=== PATIENT | male | born 1990 | race Caucasian/White ===

== ENCOUNTER → 2018-04-27 14:18 | Outpatient (CLI) | payer SELFPAY | PROVIDERS: Visit Provider Nurse Practitioner Family | DX: Z02.4 Encounter for examination for driving license (principal) ==

== ENCOUNTER 2019-07-14 14:22 | Emergency (ER) | payer BC, MEDICAID, SELFPAY ==
[2019-07-14 14:29] VITALS: BP 140/90; PULSE 106; RESP 18; TEMP 36.8; O2SAT 97; BMI 24.3
[2019-07-14 14:37] VITALS: PULSE 88; RESP 18; O2SAT 100; BMI 24.0
--- NOTE | 2019-07-14 14:42 | HMH.EDUTC ---
[facility] [place] Disposition Clinical Impression: Abscess Disposition: Home, Self-Care Condition on Discharge: Good Instructions: DI for Skin Abscess, DI for Incision and Drainage of a Skin Abscess, Incision and Drainage of a Skin Abscess, Trimethoprim/Sulfamethoxazole (Alternative Therapy) Additional Instructions: Keep area clean and dry *Follow up with ENT tomorrow as advised in the [facility] with Dr Herrera at 1245 Take medication as prescribed Return if needed Straight to ER if any life threatening symptoms Prescriptions: Sulfamethoxazole/Trimethoprim [Bactrim DS tablet] 1 each PO BID 10 Days #20 tab Transmission Status: Pending to [facility]a #[id number] Referrals: Provider,MD Cherrie [Primary Care Provider] - As needed Modesto Herrera MD [Staff Physician] - 07/15/19 12:45 pm Forms: Work/School Release Time of Disposition: 15:11 Medical Decision Making - Manpreet Inquiry Pt receiving controlled substance: No Manpreet was queried for this patient: No Vital Signs: 07/14/19 14:29 07/14/19 14:37 Temperature 98.3 F Temperature Source Oral Pulse Rate [Radial] 106 H 88 Respiratory Rate 18 18 Blood Pressure [Right Arm] 140/90 Blood Pressure Mean [Right Arm] 106 Blood Pressure Source [Right Arm] Automatic Cuff Blood Pressure Position [Right Arm] Sitting 02 Sat by Pulse Oximetry 97 100 Oxygen Delivery Method Room Air [facility] [place] HPI - General Stated complaint: growth behind left ear lobe Time Seen by Provider: 07/14/19 14:42 Mode of Arrival: Ambulatory Limitations: No Limitations Description of Symptoms (Recalled from Triage Doc. by RN): Growth to the back of to left ear x3 days. HEENT Symptoms (Recalled from RN notes): No Resp Symptoms (Recalled from RN notes): No Skin Symptoms (Recalled from RN notes): Yes MS Symptoms (Recalled from RN notes): No Functional Status (Recalled from RN notes): na - History of Present Illness Provider Complaint: Patient states that he noticed a bump like area behind his left ear about 3-4 days ago and tried to get it to come to a head State that now it large and pushing against his ear lobe States that he took some left over amoxicillin but it hasnt helped States that he has it sore from mashing on it and it hurts when touched - Related Data Previous Rx's Medication Instructions Recorded rrevkwwsedanmnu-hopalhulnbpwenp-XO 10 ml PO Q4-6H PRN #240 ml 03/23/18 2 mg-30 mg-10 mg/5 mL oral syrup Sulfamethoxazole/Trimethoprim 1 each PO BID 10 Days #20 tab 07/14/19 [Bactrim DS tablet] Allergies Allergy/AdvReac Type Severity Reaction Status Date / Time codeine Allergy Mild Verified 03/23/18 18:26 - Worker's Comp Is this a Worker's Comp case?: No [facility] History - Hepatitis A Screen Drug use history?: No High risk sexual behaviors?: No History of sexually transmitted infection?: No Currently employed?: No Childcare worker?: No Do you have indoor plumbing?: Yes Do you have electricity?: Yes Attestation statement:: This patient has been screened for Hepatitis A risk factors. I have reviewed the patient's past medical history: Yes Laterality Cases: Left: Other - Social History Smoking Status: Current every day smoker Tobacco Type: cigarettes # Packs/Day (cigarettes): 1 Alcohol Intake: current Alcohol Intake Frequency:: 0-2 drinks per day Occupational Status: employed Housing: house Household Members: family Family Hx:: Cancer, Hypertension ROS Obtained: Yes All systems reviewed & no additional complaints, Yes Systems reviewed as appropriate & no additional complaints Physical Exam - General General appearance: alert, in no apparent distress - Expanded ENT Exam External ear exam: Present: other (round soft raised area noted behind left earlobe area soft tender to touch) - Respiratory Respiratory exam: Present: normal lung sounds bilaterally. Absent: respiratory distress - Cardiovascular Cardiovascular exam: Present: regular rate, normal r
[2019-07-14 15:22] VITALS: BP 145/87; PULSE 80; RESP 20; TEMP 36.8; O2SAT 98
== END 2019-07-14 15:23 | disposition home or self-care (01) ==
PROVIDERS: Emergency Provider Nurse Practitioner
DX: H60.02 Abscess of left external ear (principal)
CPT/HCPCS: 69000; 10060; 87070; 87077; 87186; 87205; 99202; 99203

== ENCOUNTER → 2019-07-16 10:04 | Outpatient (CLI) | payer MEDICAID, SELFPAY ==
[2019-07-16 10:26] LABS: Basophils # 0.2 K/mm3 (0-0.2); Basophils % 2.2 % (0.1-2.0); Eosinophils # 0.2 K/mm3 (0.0-0.4); Eosinophils % 2.5 % (0.1-12.0); Hematocrit 50.7 % (42.0-52.0); Hemoglobin 16.9 g/dL (14.1-18.0); Lymphocytes # 1.8 K/mm3 (0.7-4.5); Lymphocytes % 25.5 % (10-50); Mean Corpuscular HGB Conc 33.3 g/dL (31.8-35.4); Mean Corpuscular Hemoglobin 31.7 pg (27.0-31.2); Mean Corpuscular Volume 95.1 fl (80-94); Mean Platelet Volume 7.8 fl (7.4-10.4); Monocytes # 0.8 K/mm3 (0.1-1.0); Monocytes % 11.1 % (1.7-9.3); Neutrophils # 4.2 K/mm3 (1.8-7.8); Neutrophils % 58.7 % (37.0-80.0); Platelet Count 269 K/mm3 (142-424); Red Blood Count 5.34 M/mm3 (4.60-6.20); Red Cell Distribution Width 13.1 % (11.5-17.5); White Blood Count 7.2 K/mm3 (4.8-10.8)
[2019-07-16 11:06] LABS: Chloride 104 mmol/L (98-107); Sodium 134 mmol/L (136-145)
[2019-07-16 11:07] LABS: Potassium 4.4 mmoL/L (3.5-5.1)
[2019-07-16 11:09] LABS: Blood Urea Nitrogen 8 mg/dl (9-20); Estimated Glomerular Filt Rate 100 ml/min (>60); GFR (African American) 122 ML/MIN (>60)
[2019-07-16 11:10] LABS: Anion Gap 10.4 mEq/L (5-15); Calcium 8.9 mg/dl (8.4-10.2); Carbon Dioxide 24 mmol/L (22.0-30.0); Glucose 122 mg/dl (74-100)
[2019-07-17 16:08] LABS: Covid-19 Nasal PCR Sendout Lex NOT DETECTED
== END ==
PROVIDERS: Visit Provider Otolaryngology
DX: Z01.818 Encounter for other preprocedural examination (principal); Q18.1 Preauricular sinus and cyst
CPT/HCPCS: 36415; 80048; 85025; U0004

== ENCOUNTER 2019-07-18 07:58 | Day surgery (SDC) | payer MEDICAID, SELFPAY ==
[2019-07-17 10:42] VITALS: BMI 24.3
[2019-07-18] VITALS (10 sets, daily range): BP systolic 109–146; BP diastolic 64–89; PULSE 77–96; RESP 16–20; TEMP 36.4–37; O2SAT 94–98
--- NOTE | 2019-07-18 08:23 | ECG_ITS ---
APPROVED REPORT Exam: Resting ECG HR:86 bpm ECG Measurements Heart Rate 86 AXES IL 150 P 58 QRSd 88 QRS 45 QT 354 T 52 QTc 423 <Conclusion> Normal sinus rhythm Nonspecific T wave abnormality Abnormal ECG Electronically signed by : Damion Lan, 07/18/2019 21:38:34
--- NOTE | 2019-07-18 08:59 | P.PN_ITS ---
[facility] Anesthesia Checklist - Patient Identification Patient Identification: Arm Band, Verbal (Name & ) - Structural Data Admitted From: Home Planned Operative Procedure/s: [email or web address] Consent for Planned Operative Procedure(s) Verified: Yes Verified Documents: History and Physical - NPO Status Verified Time NPO: 00:00 - Chart Verification Results Verified: CBC, BMP - Additional verifications Patient : No Anesthesia Reactions: No Hx Blood Transfusions: No Blood Transfusion Reaction: No Cephalosporin Allergy: No Previous Colonoscopy: No - Cardiovascular Assessment Heart Sounds: S1 & S2 Pulse Strength: Baseline Pulse Rhythm: Regular Peripheral Edema: No - Airway Assessment C-Spine Mobility Assessed: Yes TMJ Mobility Assessed: Yes Dentition: Good Dentition - Neurological Assessment Level of Consciousness: Awake, Alert, Appropriate Hx Seizures: No Numbness or tingling in extremities: No - Anesthesia Plan Anesthesia Risk discussed: Yes Anesthesia Plan: Verified ASA Class: II Anesthesia Type: MAC [facility] History I have reviewed the patient's past medical history: Yes Medical History: Denies:: Cancer, Diabetes Mellitus Type 1, Diabetes Mellitus Type 2, Internal Pacemaker, MRSA, Seizures *Have you ever received a pneumonia vaccine?: No *Have you received a flu vaccine this season?: No Other Medical History: Denies: Blood Transfusion Reaction Anesthesia experience/problems:: none Laterality Cases: Left: Other Other Surgeries: Yes: Other. No: Pacemaker Amputation: No Fractures: Yes - *Social History Educational Level: Attended High School Smoking Status: Current every day smoker Tobacco Type: cigarettes # Packs/Day (cigarettes): 1 Alcohol Intake: current Alcohol Intake Frequency:: holidays/special occasions only Substance Use Type: other *Occupational Status:: unemployed Housing: house Household Members: none *Travel in the last 8 weeks: None Family Hx:: No significant family history
--- NOTE | 2019-07-18 10:44 | HMH.ANESI ---
[facility] Anesthesia Record Part I Intake, IV Amount: 700 Estimated blood loss (mL): 5 Urine output (mL): 0 Blood Pressure: 109/64 SaO2: 94 Pulse Rate: 82 Respiratory Rate: 16 Temperature: 97.6 F Patient is:: Drowsy, Stable Stable to PACU at:: 10:40
--- NOTE | 2019-07-18 10:55 | PC.NURSE ---
1042-oral airway removed at this time, pt awake, drowsy and talking to staff, vss
--- NOTE | 2019-07-18 11:11 | PC.NURSE ---
1107-detailed report called to RUDOLPH Leon 1110-pt transported to post op via stretcher with rashida rails up and left in care of RUDOLPH Leon with bed locked in lowest position, vss, pt stable.
--- NOTE | 2019-07-18 13:26 | HMH.ANESII ---
[facility] Anesthesia Record Part II Discharge Time: 11:10 Destination: Surgical Day Care (OP Surgery) PACU nurse assessment reviewed?: Yes Patient Condition:: Good Anesthesia Complications:: None Swallowing reflex intact?: Yes Cyanosis?: No Blood Pressure: 123/77 Pulse Rate: 77 Temperature: 97.7 F Mental Status: Alert & Oriented Pain level:: 0 Nausea and/or vomitting:: None Intake, IV Amount: 0
--- NOTE | 2019-07-18 13:35 | HMH.OPNOTE ---
Date of procedure: 07/18/19 Pre-op Diagnosis:: Cystic lesion left ear Post-op Diagnosis:: same Procedure performed:: Excision of cyst 2.5 cm left ear with tissue rearrangement geometric plastic repair Surgeon:: Modesto Herrera MD Anesthesia: GETA Estimated blood loss (mL): 5 Operative findings:: same Operative note:: With the patient under general anesthesia the left ear was prepped and draped. 1 cc of epi lidocaine with epinephrine was injected into the posterior aspect of the incision lesion. The lesion was marked out and the jorge out measured 2.5 cm in length. The jorge out was incised and then the lesion was excised using tenotomy scissors and submitted. Bleeding was less than 10 cc and stopped with bipolar cautery, anterior and posterior incisions were made and Surgicel snow was placed in the defect and a tissue rearrangement geometric plastic repair was done with interrupted 4-0 nylon sutures. A Dermabond dressing was applied. The patient was sent to recovery in good general condition. Condition: stable Disposition: PACU Complications:: none
== END 2019-07-18 11:40 | disposition home or self-care (01) ==
LOC: OR 08:00
PROVIDERS: Visit Provider Otolaryngology
PROC: (CPT 14060; principal; 2019-07-18 10:00)
DX: H60.02 Abscess of left external ear (principal); Z72.0 Tobacco use
CPT/HCPCS: 14060; 93005; 96374; 96375; J2405